=== PATIENT | female | born 1995 | race Caucasian/White ===

== ENCOUNTER 2018-01-08 20:52 | Emergency (ER) | payer OTHER ==
[2018-01-08 21:03] VITALS: BP 124/78; PULSE 100; RESP 20; TEMP 97.8; O2SAT 100
--- NOTE | 2018-01-08 21:30 | C.PDOC ---
History Of Present Illness 22 year old female presents to the ED c/o sore throat and difficulty swallowing for the past 2 days associated mild cough as well. Patient denies fever, chills, nausea, vomit, SOB, rash, recent travel, sick contacts. Time Seen by Provider: 01/08/18 21:12 Chief Complaint (Nursing): ENT Problem History Per: Patient History/Exam Limitations: None Onset/Duration Of Symptoms: Days Current Symptoms Are (Timing): Still Present Quality (Mouth/Throat): Tenderness Anticoagulant/Antiplatlet Use?: No Recent Aspirin Use: No Past Medical History Reviewed: Historical Data, Nursing Documentation, Vital Signs Vital Signs: Last Vital Signs Temp 97.8 F 01/08/18 20:57 Pulse 100 H 01/08/18 20:57 Resp 20 01/08/18 20:57 BP 124/78 01/08/18 20:57 Pulse Ox 100 01/08/18 20:57 - Medical History PMH: No Chronic Diseases Surgical History: No Surg Hx Family History: States: Unknown Family Hx - Social History Hx Alcohol Use: No Hx Substance Use: No - Immunization History Hx Tetanus Toxoid Vaccination: No Hx Influenza Vaccination: No Hx Pneumococcal Vaccination: No Review Of Systems Constitutional: Negative for: Fever, Chills ENT: Positive for: Throat Pain. Negative for: Nose Congestion, Throat Swelling Cardiovascular: Negative for: Chest Pain Respiratory: Negative for: Cough, Shortness of Breath Gastrointestinal: Negative for: Nausea, Vomiting Skin: Negative for: Rash Physical Exam - Physical Exam Appears: Non-toxic, No Acute Distress Skin: Normal Color, Warm, Dry Head: Atraumatic, Normacephalic Eye(s): bilateral: Normal Inspection Ear(s): Bilateral: Normal Nose: No Discharge Oral Mucosa: Moist Throat: Normal, No Erythema, No Exudate, No Mass Neck: Normal ROM, Supple Lymphatic: No Adenopathy Chest: Symmetrical Cardiovascular: Rhythm Regular Respiratory: Normal Breath Sounds, No Rales, No Rhonchi, No Wheezing Neurological/Psych: Oriented x3, Normal Speech, Normal Cognition Gait: Steady ED Course And Treatment O2 Sat by Pulse Oximetry: 100 (ON RA) Pulse Ox Interpretation: Normal Progress Note: On reassessment, patient is resting comfortably, and is in no acute distress. Patient was instructed to follow up with physician/clinic in 1-2 days for further evaluation. Disposition Counseled Patient/Family Regarding: Diagnosis, Need For Followup, Rx Given - Disposition Disposition: HOME/ ROUTINE Disposition Time: 21:28 Condition: STABLE Additional Instructions: Increase PO fluids Gargle with warm salt water Return to ER if worse Instructions: Sore Throat, Adult (DC) Forms: [employer] (Stateless) - Clinical Impression Clinical Impression: Sore throat - PA / [employer] / Resident Statement MD/DO has reviewed & agrees with the documentation as recorded. - Scribe Statement The provider has reviewed the documentation as recorded by the Scribe Emmett Perez All medical record entries made by the Martitaibadelita were at my direction and personally dictated by me. I have reviewed the chart and agree that the record accurately reflects my personal performance of the history, physical exam, medical decision making, and the department course for this patient. I have also personally directed, reviewed, and agree with the discharge instructions and disposition.
== END 2018-01-08 21:49 | disposition home or self-care (01) ==
LOC: C.ER 20:52
DX: J02.9 Acute pharyngitis, unspecified (principal)